=== PATIENT | female | born 1990 | race Caucasian/White ===

== ENCOUNTER 2016-12-05 06:21 | Day surgery (SDC) | payer BC ==
[~2016-12-05] VITALS: Ht 157.5 cm; Wt 65.7 kg
[2016-12-05] MEDS ORDERED: FERR134T PO (07:28)
[2016-12-05 07:31] VITALS: Ht 157.5 cm; Wt 65.7 kg
[2016-12-05 08:01] VITALS: BP 121/80; PULSE 78; RESP 24
[2016-12-05] MEDS ORDERED: MIDAZOLAM 1 MG/ML 2 ML INJ ONE ×4 (08:38)
[2016-12-05] MEDS ORDERED: FENTAnyl 50 MCG/ML VIAL ONE (08:38)
[2016-12-05 08:57] VITALS: BP 96/56; PULSE 75; RESP 20
--- NOTE | 2016-12-05 11:34 | GILP ---
DATE OF PROCEDURE: NAME OF PROCEDURES: 1. Esophagogastroduodenoscopy and biopsy. 2. Colonoscopy. SURGEON: Alea Raman MD PREOPERATIVE DIAGNOSES: 1. Abdominal pain. 2. Change in the bowel habit. 3. Rectal bleeding. POSTOPERATIVE DIAGNOSES 1. Gastritis. 2. Gastric mucosal biopsies were taken for H. pylori test and it was positive. 3. Colonoscopy all the way to the cecum. 4. Some solid stool in the right colon. 5. Internal hemorrhoids. INDICATION FOR THE PROCEDURE: Ms. Azucena Robles is a 26-year-old female patient who had upper ab dominal pain, not responding to therapy. She also had change in the bowel habit or rectal bleeding. She had family history of colon cancer. The patient was scheduled for endoscopy and colonoscopy f or further evaluation. The procedures and possible complications are well explained to the patient. She understood and con sented to the procedure. DESCRIPTION OF PROCEDURE: Under the influence of fentanyl and Versed, the gastroscope was carefully introduced into the esophagus and under direct vision, it was advanced to the stomach and through t he pylorus into the duodenal bulb and descending duodenum. FINDINGS: ESOPHAGUS: The patient had gastroesophageal reflux disease. STOMACH: She had gastritis, and biopsy was positive for Helicobacter pylori infection. DUODENUM: Normal. The colonoscope was carefully introduced in the rectum and under direct vision, it was advanced all the way to the cecum. FINDINGS: The patient had some solid stool in the right colon and cecal area. The patient was note d to have internal hemorrhoids. No gross neoplasm was identified. She tolerated the procedures very well and there was no complication from the procedures. At the en d of the procedures, she was awake with stable vital signs and she was discharged home to the care o f her family. IMPRESSION: 1. Gastritis with erosions. 2. Gastric mucosal biopsies were positive for H. pylori infection. 3. Colonoscopy all the way to the cecum. 4. Some solid stool in the cecum and right colon. 5. Internal hemorrhoids. PLAN: 1. Zantac 300 mg p.o. b.i.d. for 14 days. 2. Doxycycline 100 mg p.o. b.i.d. for 14 days. 3. Flagyl 500 mg p.o. b.i.d. for 14 days. 4. Pepto-Bismol 2 tablets p.o. q.i.d. for 14 days. 5. Anusol-HC 2.5% cream at bedtime p.r.n. Dictated By: ALEA CROOK/DIMITRI Conf#: [id number] DID#: [id number]
== END 2016-12-05 10:15 | disposition home or self-care (01) ==
LOC: GIL 06:21 → SUR 06:21
PROVIDERS: ATTEND Internal Medicine Gastroenterology
DX: R19.4 Change in bowel habit (principal); K29.60 Other gastritis without bleeding; B96.81 Helicobacter pylori [H. pylori] as the cause of diseases classified elsewhere; K64.8 Other hemorrhoids
CPT/HCPCS: 43239; 45380; 84703; 87081; J2250; J3010; Z7610